=== PATIENT | female | born 1965 | race Caucasian/White ===

== ENCOUNTER 2017-08-24 05:34 | Emergency (ER) | payer SELFPAY ==
[~2017-08-24] VITALS: Ht 160 cm; Wt 87.7 kg
[2017-08-24 05:39] VITALS: BP 207/111; PULSE 77; RESP 18; TEMP 97.6; O2SAT 100
[2017-08-24 06:02] VITALS: BP 200/108; PULSE 76; RESP 18; TEMP 97.6; O2SAT 100
[2017-08-24] MEDS ORDERED: ASPIRIN 81 MG CHEW TAB PO ONE (06:15)
[2017-08-24] MEDS ORDERED: SODIUM CHLORIDE 0.9% FLUSH 10 ML FLUSH IVF PRN (06:15)
[2017-08-24] MEDS ORDERED: NITROGLYCERIN 0.4 MG SL 25 TABS/BTL SL SCH (06:15)
[2017-08-24 06:17] VITALS: BP 169/105; PULSE 74; RESP 18; O2SAT 98
[2017-08-24 06:39] LABS: AUTOMATED NEUTROPHIL # 3.5 TH/MM3 (1.8-7.7); BASOPHIL % 0.7 % (0.0-2.0); EOSINOPHIL # 0.3 TH/MM3 (0-0.4); EOSINOPHIL % 3.9 % (0.0-4.0); HEMATOCRIT 39.7 % (35.0-46.0); HEMOGLOBIN 13.1 GM/DL (11.6-15.3); LYMPH % 37.7 % (9.0-44.0); LYMPHOCYTE # 2.5 TH/MM3 (1.0-4.8); MEAN CORPUSCULAR HEMOGLOBIN 25.8 PG (27.0-34.0); MEAN PLATELET VOLUME 9.1 FL (7.0-11.0); MONO % 5.1 % (0.0-8.0); MONOCYTE # 0.3 TH/MM3 (0-0.9); NEUT % 52.6 % (16.0-70.0); PLATELET COUNT 237 TH/MM3 (150-450); RED BLOOD COUNT 5.09 MIL/MM3 (4.00-5.30); RED CELL DISTRIBUTION WIDTH 14.2 % (11.6-17.2); WHITE BLOOD COUNT 6.6 TH/MM3 (4.0-11.0)
--- NOTE | 2017-08-24 06:43 | RADRPT ---
EXAM DATE/TIME: 08/24/2017 06:28 [facility] COMPARISON: No previous studies available for comparison. INDICATIONS : Chest pain. MEDICAL HISTORY : None. SURGICAL HISTORY : Right total shoulder replacement ENCOUNTER: Initial ACUITY: 1 day PAIN SCORE: 2/10 LOCATION: Bilateral chest FINDINGS: PA and lateral views of the chest demonstrate the lungs to be symmetrically aerated without evidence of mass, infiltrate or effusion. The cardiomediastinal contours are unremarkable. Osseous structure s are intact. CONCLUSION: No evidence of acute cardiopulmonary disease. Chris Yoo MD on August 24, 2017 at 6:41 Board Certified Radiologist. This report was verified electronically.
[2017-08-24 06:48] LABS: CHLORIDE 105 MEQ/L (98-107); SODIUM (NA) 140 MEQ/L (136-145)
[2017-08-24 06:51] LABS: BICARBONATE 26.8 MEQ/L (21.0-32.0); BLOOD UREA NITROGEN 16 MG/DL (7-18); GLUCOSE,RANDOM 131 MG/DL (74-106); MAGNESIUM 2.1 MG/DL (1.5-2.5)
[2017-08-24 06:54] LABS: CREATININE 0.96 MG/DL (0.50-1.00); GLOMERULAR FILTRATION RATE 62 ML/MIN (>89)
[2017-08-24 06:59] LABS: TROPONIN I LESS THAN 0.02 NG/ML (0.02-0.05)
[2017-08-24] MEDS ORDERED: MORPHINE SULFATE 2 MG/ML INJ IV PUSH ONE (07:00)
[2017-08-24] MEDS ORDERED: ONDANSETRON HCL 4 MG/2 ML VIAL IV PUSH ONE (07:00)
[2017-08-24] MEDS ORDERED: KETOROLAC TROMETHAMINE 30 MG/ML (IVP) VIAL IV PUSH ONE (07:00)
[2017-08-24 07:38] VITALS: BP 178/105; PULSE 71; RESP 16; O2SAT 96
[2017-08-24 07:41] LABS: PROTHROMBIN TIME - PATIENT 9.9 SEC (9.8-11.6)
--- NOTE | 2017-08-24 07:50 | PD ---
HPI Chief Complaint: Headache Time Seen by Provider: 06:12 Travel History International Travel<30 days: No Contact w/Intl Traveler<30days: No Traveled to known affect area: No History of Present Illness HPI 52-year-old female presents to the emergency department by private transportation for complaint of one-week of headache with elevated blood pressure. Patient reports that several years ago she was diagnosed with hypertension placed on antihypertensive medication however ran out of the medication did not follow up with the primary at the time and has been off medication for approximately 2 years. Patient states over the last week she has had headache 9/10 intensity headache has not been sudden onset thunderclap or worst ever. No associated visual disturbance altered mentation difficulty with speech or balance denies any upper or lower extremity numbness tingling or weakness patient has had episodic chest pain and shortness of breath with nausea no vomiting. Patient denies any abdominal pain patient said no flank pain dysuria frequency urgency. Patient admits to alcohol use tobacco use and methamphetamine use. Patient states she may have elevated cholesterol but does not believe she has been diagnosed with CAD or diabetes. No family history of premature onset cardiac disease. Patient has been taking BC powders for her headache pain over the past week. Last dose of medication was approximately 8 hours ago. PFSH Past Medical History Narrative Medical Hypertension dyslipidemia tobacco use alcohol use substance use; nursing notes reviewed High Cholesterol: Yes Hypertension: Yes Influenza Vaccination: No ?: Not Menopausal: Yes Past Surgical History Section: Yes Social History Alcohol Use: Yes (occasional) Tobacco Use: Yes (1ppd) Substance Use: Yes (Methamphetamine) Allergies-Medications (Allergen,Severity, Reaction): Coded Allergies: No Known Allergies (Unverified , 08/24/17) Reported Meds & Prescriptions Reported Meds & Active Scripts Active Norvasc (Amlodipine Besylate) 5 Mg Tab 5 Mg PO DAILY Narrative Medication bc powders Review of Systems Except as stated in HPI: all other systems reviewed are Neg General / Constitutional: No: Fever, Chills Eyes: No: Diploplia, Blurred Vision, Photophobia HENT: Positive: Headaches, No: Vertigo, Lightheadedness, Neck Stiffness, Neck Pain Cardiovascular: Positive: Chest Pain or Discomfort Respiratory: No: Shortness of Breath Gastrointestinal: Positive: Nausea, No: Vomiting, Diarrhea, Abdominal Pain Genitourinary: No: Dysuria, Flank Pain Musculoskeletal: No: Myalgias, Arthralgias Skin: No Rash Neurologic: Positive: Headache, No: Weakness, Dizziness, Syncope, Focal Abnormalities, Coordination Problem, Change in Mentation, Slurred Speech, Paresthesia Psychiatric: No: Anxiety Endocrine: No: Heat Intolerance Hematologic/Lymphatic: No: Easy Bruising Physical Exam Narrative GENERAL: Well-developed well-nourished female no acute distress or respiratory distress; GCS 15 SKIN: Warm and dry. HEAD: Normocephalic. EYES: No scleral icterus. No injection or drainage. No papilledema by funduscopic exam. ENT: Airway is patent NECK: Supple, trachea midline. No JVD or lymphadenopathy. No meningismus no nuchal rigidity. CARDIOVASCULAR: Regular rate and rhythm without murmurs, gallops, or rubs. Radial and dorsalis pedis pulses 2+ to palpation. RESPIRATORY: Breath sounds equal bilaterally. No accessory muscle use. GASTROINTESTINAL: Abdomen soft, non-tender, nondistended. MUSCULOSKELETAL: No cyanosis, or edema. BACK: Nontender without obvious deformity. No CVA tenderness. Data Data Last Documented VS Vital Signs Date Time Temp Pulse Resp B/P (MAP) Pulse Ox O2 Delivery O2 Flow Rate FiO2 08/24/17 09:05 65 20 148/91 (110) 95 08/24/17 06:17 Room Air 08/24/17 06:02 97.6 Orders Orders Electrocardiogram (08/24/17 06:12) Basic Metabolic Panel (Bmp) (08/24/17 06:12) Ckmb (Isoenzyme) Profile (08/24/17 06:12) Complete Blood Count With Diff (08/24/17 06:12) Magnesium (Mg) (08/24/17 06:12) Prothrombin Time / Inr (Pt) (08/24/17 06:12) Act Partial Throm Time (Ptt) (08/24/17 06:12) Troponin I (08/24/17 06:12) Ecg Monitoring (08/24/17 06:12) Bilateral Bp Monitoring (08/24/17 06:12) Iv Access Insert/Monitor (08/24/17 06:12) Oximetry (08/24/17 06:12) Oxygen Administration (08/24/17 06:12) Aspirin Chew (Aspirin Chew) (08/24/17 06:15) Sodium Chloride 0.9% Flush (Ns Flush) (08/24/17 06:15) Nitroglycerin Sl (Nitrostat Sl) (08/24/17 06:15) Chest, Pa & Lat (08/24/17 06:12) CKMB (08/24/17 06:15) CKMB% (08/24/17 06:15) Ondansetron Inj (Zofran Inj) (08/24/17 07:00) Ketorolac Inj (Toradol Inj) (08/24/17 07:00) Morphine Inj (Morphine Inj) (08/24/17 07:00) Urinalysis - C+S If Indicated (08/24/17 07:05) Drug Screen, Random Urine (08/24/17 07:05) Ct Brain W/O Iv Contrast(Rout) (08/24/17 ) Clonidine (Catapres) (08/24/17 08:15) Ed Discharge Order (08/24/17 08:48) Labs Laboratory Tests Test 08/24/17 06:15 08/24/17 07:45 White Blood Count 6.6 TH/MM3 Red Blood Count 5.09 MIL/MM3 Hemoglobin 13.1 GM/DL Hematocrit 39.7 % Mean Corpuscular Volume 78.0 FL Mean Corpuscular Hemoglobin 25.8 PG Mean Corpuscular Hemoglobin Concent 33.0 % Red Cell Distribution Width 14.2 % Platelet Count 237 TH/MM3 Mean Platelet Volume 9.1 FL Neutrophils (%) (Auto) 52.6 % Lymphocytes (%) (Auto) 37.7 % Monocytes (%) (Auto) 5.1 % Eosinophils (%) (Auto) 3.9 % Basophils (%) (Auto) 0.7 % Neutrophils # (Auto) 3.5 TH/MM3 Lymphocytes # (Auto) 2.5 TH/MM3 Monocytes # (Auto) 0.3 TH/MM3 Eosinophils # (Auto) 0.3 TH/MM3 Basophils # (Auto) 0.0 TH/MM3 CBC Comment DIFF FINAL Differential Comment Prothrombin Time 9.9 SEC Prothromb Time International Ratio 1.0 RATIO Activated Partial Thromboplast Time 23.8 SEC Blood Urea Nitrogen 16 MG/DL Creatinine 0.96 MG/DL Random Glucose 131 MG/DL Calcium Level 9.0 MG/DL Magnesium Level 2.1 MG/DL Sodium Level 140 MEQ/L Potassium Level 3.8 MEQ/L Chloride Level 105 MEQ/L Carbon Dioxide Level 26.8 MEQ/L Anion Gap 8 MEQ/L Estimat Glomerular Filtration Rate 62 ML/MIN Total Creatine Kinase 172 U/L Creatine Kinase MB 2.1 NG/ML Troponin I LESS THAN 0.02 NG/ML Urine Collection Type CLEAN CATCH Urine Color YELLOW Urine Turbidity CLEAR Urine pH 6.5 Urine Specific [place] 1.020 Urine Protein NEG mg/dL Urine Glucose (UA) NEG mg/dL Urine Ketones NEG mg/dL Urine Occult Blood NEG Urine Nitrite NEG Urine Bilirubin NEG Urine Urobilinogen 0.2 MG/DL Urine Leukocyte Esterase NEG Urine WBC 0-2 /hpf Urine Squamous Epithelial Cells 6-8 /hpf Urine Amorphous Sediment FEW Microscopic Urinalysis Comment CULT NOT INDICATED Urine Collection Time 0745 Urine Opiates Screen NEG Urine Barbiturates Screen NEG Urine Amphetamines Screen POS Urine Benzodiazepines Screen NEG Urine Cocaine Screen NEG Urine Cannabinoids Screen NEG MDM Medical Decision Making Medical Screen Exam Complete: Yes Emergency Medical Condition: Yes Medical Record Reviewed: Yes Interpretation(s) EKG sinus rhythm no acute ST elevation injury pattern nonspecific lateral ST-T flattening Differential Diagnosis Cephalgia, controlled hypertension, atypical chest pain, ACS, ICH Narrative Course IV access obtained specimens collected and sent for resulting EKG performed without acute ST elevation or injury pattern patient placed on cafeteria monitor with continuous pulse oximetry; blood pressure 169/105; patient complains of chest pain therefore patient administer aspirin 162 mg 1 dose along with sublingual nitroglycerin Patient wanting pain medication for headache and states she now has no chest pain therefore Toradol 30 mg IV administered imaging studies pending Lab values found to be in normal range chest x-ray no acute abnormality Urine drug screen pending @ 7:38 SOTO decreased from 8-2 denies CP. At 8:40 AM discussed with patient in detail lab results imaging results and cardiac risk, female age 52 hypertension dyslipidemia tobaccoism amphetamine use with chest pain and uncontrolled hypertension recommendation for chest pain center admission per protocol; patient aware of risk and benefit risk of leaving AGAINST MEDICAL ADVICE for arrhythmia myocardial injury with ME and . Benefit of staying for monitoring serial enzymes and evaluation by cardiology. Patient is decided to leave AGAINST MEDICAL ADVICE. In view of her marked elevation of blood pressure give patient 7 days of Norvasc 5 mg to take daily and recommend she follow closely with primary care provider encouraged to discontinue tobacco use and clearly cannot for the use methamphetamine. AMA: The risks of leaving against medical advice without further evaluation treatment were discussed with the patient. These risks include cardiac dysfunction, cardiac dysrhythmia, possible heart attack, possible stroke or . The patient indicated understanding of these risks and appeared to have the capacity to make this decision. Diagnosis Primary Impression: Cephalgia Qualified Codes: G44.209 - Tension-type headache, unspecified, not intractable Additional Impressions: HTN (hypertension) Qualified Codes: I10 - Essential (primary) hypertension Methamphetamine use Left against medical advice Patient Instructions: General Instructions Med/Other Pt SpecificInfo: Prescription(s) given Scripts Amlodipine (Norvasc) 5 Mg Tab 5 MG PO DAILY for Blood Pressure Management, #7 TAB 0 Refills Prov: Shital Ley MD 08/24/17 Disposition: 07 AGAINST MEDICAL ADVICE Condition: Stable Shital Ley MD Aug 24, 2017 07:50
[2017-08-24 07:54] LABS: BILIRUBIN, URINE NEG (NEG); BLOOD, URINE NEG (NEG); GLUCOSE,URINE NEG (NEG); KETONE, URINE NEG (NEG); NITRITE,URINE NEG (NEG); PH, URINE 6.5 (5.0-8.5); URINE COLOR YELLOW (YELLW/STRAW); URINE LEUKOCYTE ESTERASE NEG (NEG)
[2017-08-24 08:02] LABS: AMORPHOUS SEDIMENT, URINE FEW; WBC, URINE 0-2 /hpf (0-5)
[2017-08-24 08:09] VITALS: BP_SYST 168; BP_SYST 183; BP_DIAS 104
--- NOTE | 2017-08-24 08:12 | RADRPT ---
EXAM DATE/TIME: 08/24/2017 07:56 [facility] COMPARISON: No previous studies available for comparison. INDICATIONS : Headache. RADIATION DOSE: 58.35 CTDIvol (mGy) MEDICAL HISTORY : Hypercholesterolemia. Hypertension. SURGICAL HISTORY : None. ENCOUNTER: Initial ACUITY: 4 - 6 days PAIN SCALE: 5/10 LOCATION: cranial TECHNIQUE: Multiple contiguous axial images were obtained of the head. Using automated exposure control and adj ustment of the mA and/or kV according to patient size, radiation dose was kept as low as reasonably a chievable to obtain optimal diagnostic quality images. DICOM format image data is available electro nically for review and comparison. FINDINGS: CEREBRUM: The ventricles are normal for age. No evidence of midline shift, mass lesion, hemorrhage or acute in farction. No extra-axial fluid collections are seen. POSTERIOR FOSSA: The cerebellum and brainstem are intact. The 4th ventricle is midline. The cerebellopontine angle i s unremarkable. EXTRACRANIAL: The visualized portion of the orbits is intact. SKULL: The calvaria is intact. No evidence of skull fracture. CONCLUSION: No acute disease. Westley Thomas MD on August 24, 2017 at 8:09 Board Certified Radiologist. This report was verified electronically.
[2017-08-24] MEDS ORDERED: cloNIDine HCL 0.1 MG TAB PO ONE (08:15)
[2017-08-24] MEDS ORDERED: AMLO5 PO (08:50)
[2017-08-24 09:05] VITALS: BP 148/91
--- NOTE | 2017-08-24 10:01 | EKG ---
Date Performed: 08/24/2017 Time Performed: 06:53:27 PTAGE: 52 years EKG: Sinus rhythm NORMAL ECG NO PREVIOUS TRACING DOCTOR: Talon Morales Interpretating Date/Time 08/24/2017 10:00:02
== END 2017-08-24 09:10 | disposition left against medical advice (07) ==
LOC: PHED 05:34
DX: R51 Headache (principal); I10 Essential (primary) hypertension; F15.90 Other stimulant use, unspecified, uncomplicated; Z53.21 Procedure and treatment not carried out due to patient leaving prior to being seen by health care provider; Z72.0 Tobacco use; E78.5 Hyperlipidemia, unspecified; R07.9 Chest pain, unspecified; R11.0 Nausea
CPT/HCPCS: 70450; 71046; 80048; 80307; 81001; 82550; 82552; 83735; 84484; 85025; 85610; 85730; 93005; 96374; 96375; 99285; J1885; J2270; J2405